=== PATIENT | male | born 1960 | race Caucasian/White ===

== ENCOUNTER 2020-01-13 16:53 | Emergency (ER) | payer OTHER ==
[2020-01-13] MEDS ORDERED: Ibuprofen 200 MG TAB ONE (17:32)
--- NOTE | 2020-01-13 18:53 | RAD ---
LEFT LITTLE FINGER/FIFTH DIGIT THREE VIEWS: 01/13/20 HISTORY: Injury, left little finger pain. FINDINGS/IMPRESSION: No acute fracture or dislocation is seen. There is a well corticated small bony density dorsal to the head and neck of the middle phalanx likely due to remote injury. POS: OFF
== END 2020-01-13 18:09 | disposition home or self-care (01) ==
LOC: NAV ERS 16:53
DX: M20.012 Mallet finger of left finger(s) (principal); Z79.82 Long term (current) use of aspirin
CPT/HCPCS: 99001